=== PATIENT | female | born 1955 | race Caucasian/White ===

== ENCOUNTER 2016-07-21 07:47 | Day surgery (SDC) | payer BC ==
[2016-07-21] MEDS ORDERED: ceFAZolin 2 GM in Sodium Chloride 0.9% 100 ML IV ONE (08:15)
[2016-07-21] MEDS ORDERED: Sodium Chloride 0.9% 10 ML Syringe FLUSH PRN (08:15)
[2016-07-21] MEDS ORDERED: Lactated Ringers 1,000 ML IV SCH (08:15)
[2016-07-21] MEDS ORDERED: hydrOXYzine HCl 50 MG/ML SDV IM ONE (09:00)
[2016-07-21] MEDS ORDERED: Ondansetron 4 MG/2 ML SDV IVPUSH ONE (09:00)
[2016-07-21] MEDS ORDERED: Lactated Ringers 1,000 ML IV ONE (09:00)
[2016-07-21] MEDS ORDERED: Midazolam 1 MG/ML 2 ML SDV IV ONE (09:00)
[2016-07-21] MEDS ORDERED: Succinylcholine/Normal Saline 100 MG/5 ML Syringe IV ONE (09:00)
[2016-07-21] MEDS ORDERED: Propofol 200 MG/20 ML SDV IV ONE (09:00)
[2016-07-21] MEDS ORDERED: diphenhydrAMINE 50 MG/ML SDV IV ONE (09:00)
[2016-07-21] MEDS ORDERED: Neostigmine Methylsulfate 1 MG/ML 5 ML Syringe IV ONE (09:00)
[2016-07-21] MEDS ORDERED: Dexamethasone 4 MG/ML 5 ML MDV IVPUSH ONE (09:00)
[2016-07-21] MEDS ORDERED: Ketorolac 30 MG/ML SDV IVPUSH ONE (09:00)
[2016-07-21] MEDS ORDERED: fentaNYL 100 MCG/2 ML SDV IV ONE (09:00)
[2016-07-21] MEDS ORDERED: Rocuronium 50 MG/5 ML Vial IV ONE (09:00)
--- NOTE | 2016-07-21 09:04 | PCM.PN ---
- General Info Date of Service: 07/21/16 - Review of Systems Systems Review Comment:: 61 y/o female with known history of symptomatic cholelithiasis here for cholecystectomy. She is medically stable to proceed with no significant change in her health status since her last exam. I have again reviewed the proposed procedure with the patient. Expectations and post op restrictions reviewed. Questions answered and she agrees to proceed. - Patient Data Vitals - most recent: Last Vital Signs Temp 97.8 F 07/21/16 08:35 Pulse 65 07/21/16 08:35 Resp 16 07/21/16 08:35 BP 147/89 H 07/21/16 08:35 Pulse Ox 98 07/21/16 08:35 Weight - most recent: 200 lb Med Orders - Current: Current Medications Lactated Ringer's (Ringers, Lactated) 1,000 mls @ 125 mls/hr IV ASDIRECTED NARESH Last Admin: 07/21/16 08:58 Dose: 125 mls/hr Sodium Chloride (Saline Flush) 10 ml FLUSH ASDIRECTED PRN PRN Reason: Keep Vein Open Discontinued Medications Cefazolin Sodium 2 gm/ Sodium (Chloride) 100 mls @ 200 mls/hr IV ONETIME ONE Stop: 07/21/16 08:44 Last Admin: 07/21/16 08:59 Dose: 200 mls/hr - Problem List Review Problem List Initiated/Reviewed/Updated: Yes - My Orders Last 24 Hours: My Active Orders 07/21/16 08:15 Patient Status [ADT] Routine Antiembolic Devices [RC] .Routine VTE/DVT Education [RC] Click to Edit Verify Patient Consent Obtain [RC] ASDIRECTED Lactated Ringers [Ringers, Lactated] 1,000 ml IV ASDIRECTED Sodium Chloride 0.9% [Saline Flush] 10 ml FLUSH ASDIRECTED PRN DVT/VTE Prophylaxis Reflex [OM.PC] Routine Peripheral IV Insertion Adult [OM.PC] Routine Sequential Compression Device [OM.PC] Routine - Assessment Assessment:: Symptomatic Cholelithiasis - Plan Plan:: Cholecystectomy
[2016-07-21] MEDS ORDERED: Bupivacaine 0.5%/EPINEPHrine 1:200,000 50 ML MDV ONE (09:35)
[2016-07-21] MEDS ORDERED: Bacitracin/Neomycin/Polymyxin B Oint 28.4 GM Tube TOP ONE (09:48)
--- NOTE | 2016-07-21 10:44 | PCM.OPNOTE ---
- General Post-Op/Procedure Note Date of Surgery/Procedure: 07/21/16 Operative Procedure(s): Laparoscopic Cholecystectomy Findings: Patulous Gallbladder with stones Lower abdominal adhesions from previous surgery adhesions to gallbladder and undersurface of gallbladder Pre Op Diagnosis: Symptomatic Cholelithiasis Post-Op Diagnosis: Same Anesthesia Technique: General ET tube Primary Surgeon: Matthias De Dios Pathology: Gallbladder Output, Urine Amount: 0 EBL in mLs: 10 Complications: None Condition: Good
--- NOTE | 2016-07-21 14:40 | OR ---
DATE OF OPERATION: 07/21/2016 SURGEON: Matthias De Dios MD PREOPERATIVE DIAGNOSIS: Symptomatic cholelithiasis. POSTOPERATIVE DIAGNOSIS: Symptomatic cholelithiasis. OPERATION PERFORMED: Laparoscopic cholecystectomy. INDICATIONS FOR SURGERY: This 61-year-old female has been having symptoms of diarrhea and upper abdominal pain. Workup has identified cholelithiasis and she comes for cholecystectomy. FINDINGS: Gallbladder does contain multiple stones. It is large and patulous. There are adhesions to the undersurface of the gallbladder as well as to the undersurface of the adjacent liver. The patient has intraabdominal adhesions in her lower abdomen from previous surgery. No other abnormalities are seen. PROCEDURE IN DETAIL: The patient was taken to the operating room. She was given general endotracheal anesthesia, and the abdomen was sterilely prepped and draped. An infraumbilical stab wound incision was made. Through this, a Veress needle was inserted and pneumoperitoneum via this needle to a pressure of 15 mmHg was achieved with carbon dioxide. The Veress needle was then replaced with a 12 mm trocar into which the 5 mm variable angled laparoscopic camera was inserted. Under direct visualization, 5 mm trocars were placed in the subxiphoid midline and in 2 areas of the right abdomen. All trocar sites were infiltrated with Marcaine prior to incision. Intra-abdominal inspection was carried out and attention was turned to the gallbladder. Traction was applied to the gallbladder and the adhesions to its undersurface, and the undersurface of the liver were carefully taken down with blunt and cautery dissection to allow exposure of the gallbladder. Care was used to avoid injury to nearby bowel and other structures. Once the gallbladder had been exposed, dissection along the lower aspect of the gallbladder identified the cystic artery and cystic duct. These structures were carefully isolated and the triangle of Calot was otherwise completely cleared. The cystic artery was then doubly clipped and divided. The cystic duct was milked and it too was doubly clipped and divided near the gallbladder with great care being used to avoid any possible injury or compromise to the common bile duct. The gallbladder was then dissected free from the undersurface of the liver using the hook cautery device. Once the gallbladder had been completely freed, it was extracted through the umbilical trocar site. Reinspection of the gallbladder bed was performed and full hemostasis was assured with the use of cautery. With no sign of bleeding or any other complicating process, the trocars were removed under direct visualization and the pneumoperitoneum was evacuated. The fascia of the umbilical trocar site was closed with a [id number] 0 Vicryl suture. Wounds were irrigated with Betadine and saline solution. Skin incisions were approximated with interrupted 4-0 Vicryl in a subcuticular stitch. Benzoin and Steri-Strips are applied. Antibiotic ointment and sterile dressings were placed. The patient was then awakened, extubated, and taken from the operating room in satisfactory condition. ESTIMATED BLOOD LOSS: 10 mL. COMPLICATIONS: None. PROGNOSIS: Good. /[id number] JENNY/JEAN PAUL ZAMUDIO
[2016-07-21 14:43] VITALS: BP 118/71
== END 2016-07-21 13:50 | disposition home or self-care (01) ==
LOC: FB.SDS 07:47
PROVIDERS: ATTEND Surgery
PROC: 0FT44ZZ Resection of Gallbladder, Percutaneous Endoscopic Approach (ICD-10-PCS; principal; 2016-07-21)
DX: K80.10 Calculus of gallbladder with chronic cholecystitis without obstruction (principal); Z79.899 Other long term (current) drug therapy; Z88.6 Allergy status to analgesic agent
CPT/HCPCS: 47562; 88304; A9270; J0330; J0690; J1100; J1200; J1885; J2250; J2405; J2704; J3010; J3410; J7030; J7120